=== PATIENT | male | born 1950 | race Caucasian/White ===

== ENCOUNTER → 2018-09-13 | Outpatient (CLI) | payer BC ==
--- NOTE | 2018-09-13 12:41 | KCIC ---
EXAM: Chest, 2 views. HISTORY: Cough. COMPARISON: None. FINDINGS: 2 views of the chest are obtained. There is no infiltrate, pleural effusion or pneumothorax. The heart is normal in size. There is hyperinflation due to inspiratory effort or emphysema. IMPRESSION: No acute pulmonary finding. Electronically signed by: Malina De Jesus MD (09/13/2018 12:39 PM) [facility]
== END | disposition home or self-care (01) ==
LOC: KCIC 12:20
PROVIDERS: ATTEND Internal Medicine Critical Care Medicine
DX: R05 Cough (principal); G47.30 Sleep apnea, unspecified
CPT/HCPCS: 71046

== ENCOUNTER → 2018-10-11 | Outpatient (CLI) | payer BC ==
--- NOTE | 2018-10-12 09:30 | SLEEP ---
DATE OF STUDY: 10/11/2018 ATTENDING PHYSICIAN: Dr. Ellie Sanders. The patient is a 68-year-old who weighs 176 pounds with a BMI of 24. The patient's [place] score was 3. The patient underwent a diagnostic sleep study at [facility]. During the night study, the patient spent 413 minutes in bed and slept for 381 minutes, with a sleep efficiency of 92%. Sleep latency was 7 minutes with a REM latency of 51 minutes. Overall, sleep architecture showed increased stage 1 and stage 2 sleep, normal N3 sleep and normal REM sleep. During the night study, the patient had 22 obstructive apneas, 5 mixed apneas, no central apneas and 143 hypopneas. The patient's apnea hypopnea index was 27 per hour. Supine index 32 per hour and REM index of 43 per hour. EKG monitoring revealed average heart rate of 77 beats per minute, no sustained arrhythmias were observed. Nocturnal oximetry study revealed mean oxygen saturation of 91% with lowest of 81%. 21% of time oxygen saturation remained between 80% and 89%. Mild PLM seen at index of 13 per hour and 2 per hour caused EEG arousals. CPAP was not initiated on the night of study. IMPRESSION: 1. Moderate sleep apnea-hypopnea syndrome with worsening during supine and REM sleep. Total AHI 27 per hour. Supine AHI of 32 per hour and the REM AHI of 43 per hour. 2. Mild PLMS. This does not need to be treated. 3. Nocturnal hypoxia secondary to obstructive sleep apnea. RECOMMENDATIONS: 1. The patient should return to the sleep lab for CPAP titration. 2. Once optimal CPAP pressure is achieved, then follow up in 4-6 weeks to assess compliance and to document clinical improvement. 3. Avoid [employer] depressants. 4. Caution regarding driving until symptoms of sleep apnea resolve with the above recommendations. WILLIE BEARD MD DR: MARIAA/juventino JOB#: [id number] / [id number] ELLIE Roman
== END | disposition home or self-care (01) ==
LOC: SLPLAB 19:00
PROVIDERS: ATTEND Internal Medicine Critical Care Medicine
DX: G47.33 Obstructive sleep apnea (adult) (pediatric) (principal)
CPT/HCPCS: 95810

== ENCOUNTER → 2018-11-21 | Outpatient (CLI) | payer BC ==
--- NOTE | 2018-11-22 11:21 | SLEEP ---
DATE OF STUDY: 11/21/2018 SLEEP STUDY ATTENDING PHYSICIAN: Dr. Ellie Sanders. The patient is 68 years old, who weighs 176 pounds with a BMI of 23. The patient had a sleep study on 10/11/2018 and was found to have moderate MOON with worsening during supine and REM sleep. Total AHI of 27 per hour with a supine AHI of 32 per hour and a REM AHI of 43 per hour. The patient returned for CPAP titration study at [facility]. During the night study, the patient spent 408 minutes in bed and slept for 358 minutes with a sleep efficiency of 88%. Sleep latency was 3 minutes with a REM latency of 244 minutes. Overall, sleep architecture showed normal stage 1 and stage 2 sleep and normal REM sleep and normal slow wave sleep. EKG monitoring revealed normal sinus rhythm, average heart rate 70 beats per minute, no arrhythmias observed. PLMS were seen at an index of 23 per hour, but only 2 per hour caused EEG arousals. The patient was started on CPAP at 5 cm water and titrated up to 12 cm water. At the final pressure, the patient slept for 179 minutes. The patient had supine and long REM sleep. AHI was reduced to 0 per hour and oxygen saturation remained above 94%. The patient used a medium size full face mask. IMPRESSION: 1. Moderate sleep apnea with worsening during supine and REM sleep diagnosed by previous sleep study. 2. Mild to moderate periodic limb movements of sleep without any significant EEG arousals. This does not need to be treated. RECOMMENDATIONS: 1. CPAP at 12 cm water completely eliminated the patient's sleep apnea and should be used on a nightly basis. 2. Follow up in 4-6 weeks to assess compliance with CPAP and to document clinical improvement. 3. Avoid [employer] depressants. 4. Cautioned regarding driving until symptoms of sleep apnea resolve with the above recommendation. WILLIE BEARD MD DR: MARIAA/juventino JOB#: [id number] / [id number] ELLIE Roman MD
== END | disposition home or self-care (01) ==
LOC: RT 19:06
PROVIDERS: ATTEND Internal Medicine Critical Care Medicine
DX: G47.33 Obstructive sleep apnea (adult) (pediatric) (principal); G47.61 Periodic limb movement disorder
CPT/HCPCS: 95811